=== PATIENT | male | born 1980 | race Caucasian/White ===

== ENCOUNTER 2019-09-14 06:32 | Inpatient (IN) | payer OTHER ==
[~2019-09-14] VITALS: Ht 185.4 cm; Wt 98.6 kg
[2019-09-14] MEDS ORDERED: LISINOPRIL10 MG PO (06:40)
[2019-09-14] MEDS ORDERED: OMEPRAZOLE20 MG PO (06:41)
--- NOTE | 2019-09-14 10:30 | NUR ---
PATIENT ARRIVED VIA STRETCHER WITH ED RN. PATIENT MOVED TO BED HIMSELF. PATIENT COMPLAINS OF ABD CRAMPING THAT FEELS BETTER IF HE LAYS ON HIS SIDE. URINALS PLACED IN THE BATHROOM. PATIENT IS AMBULATORY. BELONGINS AT THE BEDSIDE. PATIENT ASKED SOON HE ARRIVED TO ROOM 130 IF HE COULD GO OUTSIDE. EDUCATED PATIENT REGAURDING POLICIES AND THAT PATIENT CANNOT SMOKE WHILE ADMITTED TO THE HOSPITAL. WILL PROVIDE NICOTINE REPLACEMENT.
--- NOTE | 2019-09-14 11:15 | NUR ---
PATIENT NOW RESTING I NBED. PATIENT NOTED TO BE VERY SHORT AND "SNAPPY" AT STAFF WHEN ADMITTING PATIENT. PATIENT STATES "I NEED SOMETHING FOR MY ANXIETY". GAVE PRN ATIVAN. NICOTINE PATCH IN PLACE AND NICOTINE LOZENGE GIVEN. EDUCATED PATIENT ABOUT HOURLY BLOOD SUGAR CHECKS. CALL LIGHT IN PLACE. WILL CONTINUE TO CLOSELY MONITOR.
--- NOTE | 2019-09-14 12:10 | NUR ---
PATIENT RESTING IN BED AT THIS TIME. PATIENT DENIES ANY NEEDS. LABS DONE. INSULINE GTT TO 5MLS/HR PER PROTOCOL AND VERIFIED WITH SECOND RN. CALL LIGHT IN REACH. WILL CONTINUE TO CLOSELY MONITOR.
--- NOTE | 2019-09-14 14:00 | NUR ---
PATIENT RESTING IN BED. PATIENT REMAINS ON INSULIN GTT AT THIS TIME AND NS WITH POTTASIUM PER ORDERS. PATIENT DENIES ANY NEEDS. WILL CONTINUE TO ENCOURAGE REST PATIENT REPORTS "I AM ABSOLUTELY EXHAUSTED, I HAVE NOT SLEPT WELL FOR OVER A MONTH". WILL CONTINUE TO CLOSELY MONITOR.
--- NOTE | 2019-09-14 14:38 | NUR ---
Initial CM eval. Pt is resting in bed. States he is not feeling well, has been medicated with ativan and is pleasant. States he has not been feeling well for over a month, drinking large amounts of water and urinating. Has lost 16 pounds. States he lives in town with his girlfriend, Laura Parra, and their two children and his mother. Would like to return home when discharged.
--- NOTE | 2019-09-14 16:30 | NUR ---
PATIENTS GIRLFRIEND IN TO VISIT. PHONE NUMBER LEFT WITH STAFF. PATIENT STATES "I AM FEELING BETTER RIGHT NOW, GAVE PRN ZOFRAN AT 1600 FOR MILD NAUSEA". PATIENT STATES ABD PAIN IS TOLERABLE AT THIS TIME. PATIENT ON INSULIN GTT AND ADJUSTING GTT PER ORDERS. ASSESSMENT REMAINS UNCHANGED AT THIS TIME. WILL CONTINUE TO CLOSELY MONTIOR.
--- NOTE | 2019-09-14 18:04 | NUR ---
PATIENT RESTING IN BED AT THIS TIME WATCHING TV. PATIENT DENIES ANY NEEDS AT THIS TIME. PATIENT IS ABLE TO STAND ON HIS OWN AND GO TO THE BATHROOM NEEDED. PATIENT REMAINS ON AN INSULIN GTT AND CONTINUING TO TITRATE PER ORDERS. WILL CONTINUE TO CLOSELY MONITOR.
--- NOTE | 2019-09-14 19:01 | NUR ---
MD WALTER CALLED. PER MD WILL LEAVE PATIENT ON INSULIN GTT OVER NIGHT. MAY GIVE PATIENT SIPS OF WATER AND IF HE TOELRATES MAY ADVANCE DIET TO SUGAR FREE CLEAR LIQUID DIET. ONCE BLOOD SUGAR IS LESS THAN 200 START PATIENT ON D5NS W/20K AT 150MLS/HR. WILL HAVE INDUSTRIAL ENGINEER RN CALL WITH 0000 LAB VALUES. REPORT GIVEN TO INDUSTRIAL ENGINEER RNS. WILL CONTINUE TO CLOSELY MONITOR.
--- NOTE | 2019-09-14 19:35 | NUR ---
REPORT RC'D FROM DAY SHIFT NURSE. PT CURRENTLY RESTING IN BED WITH FAMILY AT BEDSIDE. INSULIN GTT VERIFIED AND INFUSING AT 10.2 UNITS/HR. FULL ASSESSMENT TO BE COMPLETE.D
--- NOTE | 2019-09-14 20:30 | NUR ---
PT AAOX4. SINUS TACH ON MONITOR. LUNGS CLEAR THROUGHOUT AND ON ROOM AIR. ABD TENDER, BOWEL TONES ACTIVE, DENIES NAUSEA. VOIDING QS. INTEGUMENTARY INTACT. DENIES PAIN. REQUESTING MEDICATION FOR ANXIETY AND RESTLESSNESS, 1 MG ATIVAN GIVEN. INSULIN GTT INFUSING AT 7.2 UNITS/HR. D5NS WITH 20K STARTED AT 150 ML/HR. REINFORCED SAFETY AND FALL PRECAUTION. UPDATED ON PLAN OF CARE. EDUCATION PROVIDED ON PAIN MANAGEMENT. ALL QUESTIONS ANSWERED. DENEIS OTHER NEEDS. CALL LIGHT WITHIN REACH.
--- NOTE | 2019-09-14 20:57 | NUR ---
CBG 196, INSULIN GTT TITRATED TO 9.8 UNITS/HR.
--- NOTE | 2019-09-14 21:54 | NUR ---
CBG 216, NO TITRATION NEEDED PER PROTOCOL.
--- NOTE | 2019-09-14 22:53 | NUR ---
CBG 223, INSULIN GTT TITRATED TO 13.6 UNITS/HR. PT ASSESSED FOR PAIN, STATES PAIN TOLERABLE AT THIS TIME. DENEIS OTHER NEEDS. CALL LIGHT WITHIN REACH.
--- NOTE | 2019-09-14 23:59 | NUR ---
CBG 206, INSULIN GTT TITRATED TO 11.2 UNITS/HR. ASSESSMENT UNCHANGED. PT REMAINS RESTFULL WITH NO ACUTE DISTRESS. DENEIS OTHER NEEDS. CALL LIGHT WITHIN REACH.
--- NOTE | 2019-09-15 00:36 | NUR ---
LABD OBTAINED. PT C/O 07/10 ABD PAIN, PRN MORPHINE GIVEN, EDUCATION PROVIDED ON USES AND POSSIBLE SIDE EFFECTS, ALL QUESTIONS ANSWERED. DENIES OTHER NEEDS. CALL LIGHT WITHIN REACH.
--- NOTE | 2019-09-15 02:45 | NUR ---
CBG 187, NO TITRATION OF INSULIN GTT PER PROTOCOL. DR. WALTER UPDATED ON PT'S LABS, NO NEW ORDERS. WILL CONTINUE TO MONITOR.
--- NOTE | 2019-09-15 04:58 | NUR ---
CBG 161, INSULIN GTT TITRATED TO 7 UNITS/HR. ASSESSMENT UNCHANGED. DENIES PAIN. DENIES OTHER NEEDS. CALL LIGHT WITHIN REACH.
--- NOTE | 2019-09-15 07:02 | NUR ---
NO TITRATION NEEDED.
--- NOTE | 2019-09-15 07:30 | NUR ---
PATIENT SHIFT REPORT RECIEVED FROM PANTS PRESSER AUTOMATIC RN. PATIENT RESTING IN BED AT THIS TIME. PATIENT REMAINS ON INSULIN GTT. NO OTHER NEEDS AT THIS TIME. WILL CONTINUE TO CLOSELY MONITOR.
--- NOTE | 2019-09-15 07:55 | NUR ---
MD WALTER CALLED. WILL TRANSITION PATIENT TO SUB-Q INSULIN. WILL STOP INSULIN GTT ONE HOUR AFTER LONG ACTING INSULIN IS ADMINISTERED AND SWITCH IV FLUIDS. WILL TRANSITION PATIENT TO A DIABETIC CLEAR LIQUID TRAY AND MONITOR HOW PATIENT TOLERATES IT. NEW ORDERS PLACED. WILL CONTINUE TO CLOSELY MONITOR.
--- NOTE | 2019-09-15 09:37 | NUR ---
PATIENT ASSESSMENT COMPLETED. MD WALTER IN TO SEE PATIENT. PATIENT IS AGREEABLE TO PLAN OF CARE AT THIS TIME AND STATES "I AM VERY SERIOUS ABOUT ALL OF THIS AND AM GOING TO DO WHAT I NEED TO GET BETTER, I KNOW THIS IS A LIFE CHANGING DIAGNOSIS". TRANSITIONED PAITENT TO SUB-S INSULIN PER MD ORDERS. PATIENT DENEID A SHOWER AT THIS TIME. BREAKFAST ORDERED. WILL CONTINUE TO CLOSELY MONITOR.
--- NOTE | 2019-09-15 11:00 | NUR ---
PATIENT RESTING IN BED. PATIENT TOELRATED CLEAR LIQUID TRAY WITH NO INCREASED ABD PAIN NOTED. PATIENT DENIES NAUSEA AT THIS TIME. WILL CONTINUE TO CLOSELY MONITOR. CLEAR LIQUID TRAY ORDERED FOR LUNCH.
--- NOTE | 2019-09-15 12:02 | NUR ---
PATIENT RESTING IN BED. PATIENT STATES "I HAVE NOT SLEPT WELL FOR A LONG TIME, SO I AM JUST CATCHING UP ON SLEEP WHILE I CAN, I HAVE A BABY AT HOME ALONG WITH BEING SICK, I HAVE BEEN EXHAUSTED". WILL ALLOW REST AT THIS TIME. PATIENTS BLOOD SUGAR CHECKED. CLEAR LIQUID TRAY ORDERED. NO OTHER NEEDS AT THIS TIME. WILL CONTINUE TO CLOSELY MONITOR.
--- NOTE | 2019-09-15 14:00 | NUR ---
PATIENT SITTING IN HIS ROOM WATCHING TV. OTHER RN GAVE PATIENT PRN ZOFRAN AND PAIN MEDICATION PRIOR TO HIS MEAL FOR INCREASED PAIN ANDNAUSEA. PATIENT IS VERY EAGAR TO LEARN ABOUT DIABETIES. PATIENT SIGNIFICANT OTHER WILL BE IN THIS EVENING AND WILL GO COMPLETE TEACHING WHEN SHE ARRIVES PER PATIENT REQUEST. PATIENT ASKS QUESTIONS AND IS INVOLVED IN PLAN OF CARE. NO OTHER NEEDS AT THIS TIME. ALL QUESTIONS ANSWERED. CALL LIGHT IN REACH. WILL CONTINUE TO CLOSELY MONITOR.
--- NOTE | 2019-09-15 15:45 | NUR ---
PT AND PT'S EDUCATED ON BASIC TYPE ONE DIABETIC SAFETY AND MANAGEMENT IN PREPERATION FOR PT DC TO HOME. PROVIDED PRINTED MATERIAL ON CARB COUNTING, SICK DAY MANAGEMENT, DAILY DIABETIC MANAGEMENT, AND DIAGNOSIS OF TYPE ONE DIABETES. ALL QUESTIONS ANSWERED. PROVIDED EDUCATION ON DRAWING UP AND ADMINISTERING INSULIN AND GLUCAGON.
--- NOTE | 2019-09-15 16:00 | NUR ---
THIS RN AND OTHER RN IN TO DO EDUCATION REGAURDING DIABETES. PATIENT AND HIS SIGNIFICANT OTHER ARE VERY RECEPTIVE TO EDUCATION AND INVOLVED AND ASKING QUESTIONS. WILL CONTINUE TO EDUCATE PATIENT AND FAMILY DURING HIS STAY AND ANSWER QUESTIONS.
--- NOTE | 2019-09-15 17:50 | NUR ---
PATIENT SIGNIFICANT OTHER IN THE ROOM. PATIENT AND SO PRACTICED USING GLUCOMETER AND DRAWING UP INSULIN AND ADMINISTRATION. WILL CONTINUE TO EDUCATED AND HAVE PATIENT AND SO BE INVOLVED IN HANDS ON ACTIVITIES. GAVE PRN MORPHINE FOR ABD PAIN PRIOR TO PATIENT EATING DINNER. NO OTHER NEEDS AT THIS TIME. WILL CONTINUE TO CLOSELY MONITOR.
--- NOTE | 2019-09-15 18:32 | NUR ---
UPDATED MD THAT PATIENT ATE APPROX 40G CARBS OF HIS MEAL. PER MD HOLD ADDITIONAL MEAL TIME INSULINE AND ONLY GIVE SLIDING SCALE INSULIN. WILL MONITOR HOW PATIENT TOLERATES DINNER. SO FAR PATIENT DENIES ANY NAUSEA OR PAIN WITH EATING. PATIENT UP CLEANING UP IN THE BATHROOM AND THEN WILL GO SHOWER AFTER HE IS FINISHED. ALL QUESTIONS ANSWERED. WILL CONTINUE TO CLOSELY MONITOR.
--- NOTE | 2019-09-15 18:54 | NUR ---
PATIENT UP TO THE SHOWER AT THIS TIME AND BEDDING CHANGED.
--- NOTE | 2019-09-15 19:30 | NUR ---
SHIFT REPORT RECEIVED. PATIENT RETURNED TO ROOM FROM SHOWERING. NEW GOWN PROVIDED BY ROMAINE SEALS. IV FLUSHED AND FLUIDS RESTARTED. PATIENT REPORTS MILD NAUSEA AND PAIN, WILL PROVIDED PRN MEDS WHEN AVAILABLE. PATIENT AGREEABLE TO THIS. NO OTHER NEEDS AT THIS TIME.
--- NOTE | 2019-09-15 20:41 | NUR ---
PATIENT PROVIDED WITH PRN ZOFRAN AND MORPHINE. EVENING MEDICATIONS PROVIDED. PATIENT ASSISTED TO CHECK HIS OWN BLOOD GLUCOSE AND ADMINISTER HIS INSULIN DOSE. PATIENT DID WELL AND APPEARS EAGER TO LEARN. VS STABLE. IV FLUIDS PER ORDER. PATIENT CONTINUES TO HAVE ABD PAIN, MOST PAINFUL IN MID UPPER ABD. VERY MILD NAUSEA, TOLERATING FLUIDS. PATIENT PREPARING FOR SLEEP, NO OTHER NEEDS AT THIS TIME.
--- NOTE | 2019-09-16 01:24 | NUR ---
SCHEDULED BLOOD GLUCOSE CHECKED AND COVERED WITH SSI. PATIENT REPORTS ONGOING PAIN IN ABD, PRN MORPHINE PROVIDED. WARM BLANKET OFFERED. VS STABLE. PATIENT DENIES NAUSEA. IV FLUIDS PER ORDER, SITE WNL. NO OTHER NEEDS AT THIS TIME.
--- NOTE | 2019-09-16 05:00 | NUR ---
PATIENT RESTING IN BED. REPORTS SLEEPING WELL DURING THE NIGHT. PAIN HAS IMPROVED. NO NAUSEA THIS MORNING. IV FLUIDS PER ORDER, SITE WNL. PATIENT REQUEST PRN PAIN MEDS FOR AND PAIN 5/10, WHICH WAS PROVIDED. LAB IN FOR MORNING DRAW. PATIENT DENIES ANY NEEDS.
--- NOTE | 2019-09-16 07:42 | NUR ---
SHIFT REPORT RECIEVED FROM FOOD TECHNICIAN RN. PATIENT RESTING IN BED. PATIENT DENIES ANY NEEDS AT THIS TIME. CALL LIGHT IN REACH. WILL CONTINUE TO CLOSELY MONITOR.
--- NOTE | 2019-09-16 08:59 | NUR ---
PATIENT RESTING IN BED. CHECKED PATIENTS BLOOD SUGAR. MEDICATIONS ADMINISTERED. BREAKFAST ORDERED. PATIENT REQUESTS TO SLEEP FOR JUST 45 MORE MIN. VITALS TAKEN. WILL LET PATIENT REST WHILE WAITING FOR BREAKFAST TO ARRIVE. PATIENT DENIES ANY OTHER NEEDS AT THIS TIME. WILL CONTINUE TO CLOSELY MONITOR.
--- NOTE | 2019-09-16 09:30 | NUR ---
PATIENT ANT-UP AND ADMINISTERED HIS OWN INSULIN THIS AM BEFORE BREAKFAST. MD WALTER IN TO SEE PATIENT. REVIEWED PLAN OF CARE WITH PATIENT. WILL CONTINUE MONITORING BLOOD SUGAR AND FOLLOW NEW ORDERES PER MD. WILL CONTINUE TO EDUCATE PATIENT AND CONTINUE ENCOURAGING PATIENT TO BE INVOLVED IN CARE. PATIENT REQUESTS TO NAP AT THIS TIME. WILL CONTINUE TO CLOSELY MONITOR.
--- NOTE | 2019-09-16 11:00 | NUR ---
PATIENT RESTING IN BED. CHECKED PATIENTS BLOOD SUGAR D/T PATIENT RECIEVING MEAL TIME AND CORRECTIONAL INSULIN THIS AM WHICH IS NEW FOR PATIENT. PATIENT BLOOD SUGAR IS 269. PATIENT DENIES ANY NEEDS AT THIS TIME. PATIENT RESTING OFF AND ON. PATIENT STATES PAIN IN ABD CONTINUES TO IMPROVE OVER TIME. PATIENT CONTINUES TO DENY NAUSEA. CALL LIGHT IN REACH. WILL CONTINUE TO CLOSELY MONITOR.
--- NOTE | 2019-09-16 12:30 | NUR ---
PATIENT REPORT GIVEN TO CAROL SEALS. PATIENT IS RESTING IN BED AT THIS TIME. WILL WALK WITH [facility] UPDATED CAROL SEALS THAT STAFF NEED TO CONTINUE DIABETES EDUCATION AND THE ADMINISTRATION OF INSULIN. PATIENT HAS BEEN INVOLVED IN TEACHING AND ASK QUESTIONS. PATIENT STATES THIS IS NICOL A LOT AND IT HELPS WHEN MY IS HERE. PATIENT DOES NOT KNOW WHEN SHE WILL BE HERE TO HELP WITH MORE EDUCATION. REMINDED PATIENT THAT IRIS WILL NOT ALWAYS BE THERE TO HELP HIM GIVE INJECTIONS AND PATIENT IS AGREEABLE TO LEARNING MORE.
--- NOTE | 2019-09-16 12:40 | NUR ---
PATIENT MEDICATIONS ADMINISTERED. UPDATED PATIENT ON PLAN OF CARE AND TRANSFER TO [facility] PATIENT IS AGREEABLE TO PLAN OF CARE. ALL BELONGINGS GATHERED AND THIS RN WALKED WITH PATIENT TO HIS NEW ROOM 115. VITALS TAKEN PRIOR TO TRANSFER. PATIENT WALKED TO NEW ROOM WITH NO ISSUES. CAROL RN IN ROOM TO INTRODUCE HIMSELF.
--- NOTE | 2019-09-16 12:46 | NUR ---
PT ARRIVED TO ROOM 115 FROM CCU AT THIS TIME. PT IS ALERT AND ORIENTED. ASSESSMENT COMPLETED. CALL LIGHT AND H2O IN REACH. PT DENIES NEEDS OR CONCERNS AT THIS TIME.
--- NOTE | 2019-09-16 14:26 | NUR ---
Medications reconciled
--- NOTE | 2019-09-16 15:01 | NUR ---
PT REPORTS PAIN OF 7/10 TO ABDOMEN. PT REQUESTED AND RECEIVED PRN PO TYLENOL. CALL LIGHT AND H2O IN REACH. NO FURTHER NEEDS OR CONCERNS VOICED.
--- NOTE | 2019-09-16 17:15 | NUR ---
PT SITTING UP AT SIDE OF BED EATING DINNER. PT HAS EATEN 80% SO FAR. SCHEDULED INSULIN ADMINISTERED. PT STATES PAIN IS TOLERABLE. NO NEEDS OR CONCERNS VOICED. FAMILY VISITING AT BEDSIDE.
--- NOTE | 2019-09-16 19:30 | NUR ---
REPORT RECEIVED FROM DAY SHIFT RN. PT LYING IN BED, ALERT AND ORIENTED. NO QUESTIONS OR CONCERNS AT THIS TIME. CALL LIGHT IN REACH.
--- NOTE | 2019-09-16 21:20 | NUR ---
ASSESSMENT COMPLETE. EVENING MEDS GIVEN WITHOUT ISSUE. PRN NICOTINE LOZENGE GIVEN PER PT REQUEST. PT DENIES PAIN OR NAUSEA. SUGAR FREE JELLO GIVEN. NO FURTHER NEEDS AT THIS TIME. CALL LIGHT IN REACH.
--- NOTE | 2019-09-17 00:13 | NUR ---
PT RESTING IN BED AND WATCHING TELEVISION, NO DISTRESS NOTED. PT DENIES NEEDS, CALL LIGHT IN REACH.
--- NOTE | 2019-09-17 02:10 | NUR ---
PT AWAKE, LYING IN BED. BLOOD SUGAR 242, INSULIN GIVEN PER SLIDING SCALE. PROTEIN PACK GIVEN FOR A SNACK. PRN TYLENOL GIVEN FOR GENERALIZED PAIN. PT DENIES OTHER NEEDS AT THIS TIME. CALL LIGHT IN REACH.
--- NOTE | 2019-09-17 03:50 | NUR ---
PT IN BED RESTING WITH EYES CLOSED. RR EVEN AND UNLABORED. CALL LIGHT IN REACH.
--- NOTE | 2019-09-17 05:22 | NUR ---
PT ALERT AND ORIENTED. USES CALL LIGHT APPROPRIATELY. INDEPENDENT IN ROOM. BLOOD SUGAR CHECK AND INSULIN PER SLIDING SCALE. TYLENOL FOR ABD PAIN. 75 GR CARB DIET, YESENIA WELL.
--- NOTE | 2019-09-17 06:27 | NUR ---
PT LYING IN BED RESTING WITH EYES CLOSED. VS AND I&O COMPLETE. ASSESSMENT COMPLETE. PT DENIES PAIN OR NAUSEA. NO OTHER NEEDS AT THIS TIME. CALL LIGHT IN REACH.
--- NOTE | 2019-09-17 07:10 | NUR ---
PT RESTING SUPINE IN BED, EYES CLOSED AND RESPIRATIONS EVEN AND UNLABORED. CALL LIGHT AND H2O IN REACH. PT APPEARS TO BE SLEEPING COMFORTABLY. RR16. REPORT RECEIVED FROM ARNEL MENDOZA.
--- NOTE | 2019-09-17 07:30 | NUR ---
PATIENT RESTING IN BED. PATIENT REFUSED WASH CLOTH FOR FACE AND HANDS. NO NEEDS AT THIS TIME. CALL BUTTON IN REACH. BREAKFAST BROUGHT INTO ROOM.
--- NOTE | 2019-09-17 08:27 | NUR ---
PT SITTING UP IN BED WATCHING TV. PT STATES "I'M FEELING KIND OF NAUSEATED AFTER BREAKFAST, CAN I GET SOMETHING FOR THAT?" PT REQUESTED AND RECEIVED PRN IV ZOFRAN. SCHEDULED AM MEDS ALSO ADMINISTERED. AM ASSESSMENT COMPLETED. CALL LIGHT AND H2O IN REACH. NO FURTHER NEEDS OR CONCERNS VOICED.
--- NOTE | 2019-09-17 10:00 | NUR ---
In and spoke with Josh. He plans on going home today. States he had intensive diabetic education over the last few days. He has been able to give himself shots and his girlfrient has also completed. Discussed his pancreatitis and asked if he would like information on A&D counseling through [facility], which is free. He declines at this time. Pt. feels he can safely dc to home with family.
--- NOTE | 2019-09-17 10:45 | NUR ---
IN TO SEE PATIENT. PT RESTING IN SEMIFOWLERS POSITION IN BED ALERT AND ORIENTED. PT STATES "WILL YOU LET THE DOCTOR I REALLY NEED TO BE GETTING HOME NOW, I'VE GOT KIDS AT HOME THAT NEED THEIR DAD". DR MCCOLLUM NOTIFIED OF PT'S REQEUST FOR DISCHARGE. PER MD REQEUST SEVERAL ATTEMPTS MADE TO CONTACT DIABETIC DIETARY EDUCATOR BUT NO ANSWER AT THIS TIME. ATTEMPT ALSO MADE TO CONTACT CASE MANAGEMENT TO ASSIST IN COORDINATING THIS EDUCATION ON AN OUTPATIENT BASIS PER MD REQUEST BUT NO ANSWER AT THIS TIME. PORTFOLIO ANALYST NOTIFIED OF NEED FOR THIS TO BE COORDINATED.
--- NOTE | 2019-09-17 11:05 | NUR ---
PT PROVIDED WITH DIET FERNANDEZ AT THIS TIME PER REQUEST. CALL LIGHT AND H2O IN REACH. MD IN TO SEE PATIENT, NO FURTHER NEEDS VOICED AND PT APPEARS TO BE IN NO ACUTE DISTRESS.
[2019-09-17] MEDS ORDERED: NICOTINE PATCH1 EAC1 TD (11:12)
[2019-09-17] MEDS ORDERED: NICORETTE4 M2 BUCCAL (11:12)
[2019-09-17] MEDS ORDERED: BASAGLAR K100 UNIT/1 SUB-Q (11:14)
[2019-09-17] MEDS ORDERED: NOVOLOG FL100 UNIT/1 SUB-Q (11:16)
[2019-09-17] MEDS ORDERED: FREESTYLE LITE1 EAC1 XX (11:17)
[2019-09-17] MEDS ORDERED: FREESTYLE FREE1 EAC1 MISC (11:18)
[2019-09-17] MEDS ORDERED: DROPLET NE EAC XX (11:28)
--- NOTE | 2019-09-17 11:30 | NUR ---
ODILIA CEE IN PT ROOM TO DISCUSS WITH PT APPROPRIATE FOODS, AND THAT DIABETIC CONSULT PROVIDER WOULD MAKE CONTACT WITH PT WITHIN THREE DAYS.
--- NOTE | 2019-09-17 11:43 | NUR ---
THERE IS A CATALOGUE AND SPECIAL PRODUCTS MANAGER CONSULT, BUT CATALOGUE AND SPECIAL PRODUCTS MANAGER IS NOT HERE UNTIL TUESDAY, 09/19. I STOPPED BY PATIENT'S ROOM HE IS PREPARING TO BE DISCHARGED. HE IS NEWLY DIAGNOSED WITH TYPE 1 DM. I PROVIDED HIM A BOOK ON DIABETES FROM THE [employer]. WENT OVER WHAT IS HYPOGLYCEMIA, SIGNS & SYMPTOMS OF HYPOGLYCEMIA, AND HOW TO TREAT HPYOGLYCEMIA. ALSO WENT OVER FACTORS THAT CAN RAISE BLOOD SUGAR BESIDES FOOD. REVIEWED THE DIABETES PLATE AND BRIEFLY DISCUSSED CARBOHYDRATES. PATIENT ALREADY PLANS TO READ LABELS. GAVE HIM MY CONTACT INFO AND MIGUEL GOEL, CATALOGUE AND SPECIAL PRODUCTS MANAGER'S CONTACT INFO. WE WILL CONTACT HIM TO SCHEDULE AN OUTPATIENT APPOINTMENT.
== END 2019-09-17 12:25 | disposition home or self-care (01) | DRG 637 ==
LOC: ED 06:32 → CCU 09:32 → MS 09-16 12:40
PROVIDERS: ADMIT Internal Medicine
DX: E10.10 Type 1 diabetes mellitus with ketoacidosis without coma (principal); K85.20 Alcohol induced acute pancreatitis without necrosis or infection; I10 Essential (primary) hypertension; F17.210 Nicotine dependence, cigarettes, uncomplicated; K21.9 Gastro-esophageal reflux disease without esophagitis; E78.5 Hyperlipidemia, unspecified; F10.10 Alcohol abuse, uncomplicated; Z79.899 Other long term (current) drug therapy
CPT/HCPCS: 36415; 74177; 80048; 80053; 80061; 81001; 82010; 82800; 82977; 83036; 83519; 83690; 83735; 84681; 85025; 86341; 96361; 96374; 96375; 96376; 99285-25; 99406; G0480; J1650; J1815; J2060; J2270; J2405; J3475; J3480; J7030; J7121; Q9967

== ENCOUNTER 2020-10-20 01:14 | Emergency (ER) | payer OTHER ==
[~2020-10-20] VITALS: Ht 185.4 cm; Wt 98.6 kg
[~2020-10-20 01:14] MED LIST: BASAGLAR K100 UNIT/1 SUB-Q; DROPLET NE EAC XX; FREESTYLE FREE1 EAC1 MISC; FREESTYLE LITE1 EAC1 XX; LISINOPRIL10 MG PO; NICORETTE4 M2 BUCCAL; NICOTINE PATCH1 EAC1 TD; NOVOLOG FL100 UNIT/1 SUB-Q; OMEPRAZOLE20 MG PO
--- OUTSIDE RECORDS SUMMARY | 2020-10-20 01:16 | XMS ---
PreManage Notification: NIGEL CESPEDES Security Liquor Gallery Operator Events No recent Security Events currently on file CRITERIA MET - [facility] CARE PROVIDERS There are no care providers on record at this time. [facility] has no Care Guidelines for this patient. Ming VISIT COUNT (12 MO.) 1 DARIEL Wilkinson TOTAL 1 NOTE: Visits indicate total known visits. ED/C VISIT TRACKING (12 MO.) 10/20/2020 01:15 DARIEL Argueta OR TYPE: Emergency COMPLAINT: - POSSIBLE DISLOCATED SHOULDER INPATIENT VISIT TRACKING (12 MO.) No inpatient visits to display in this time frame [email or web address]
== END 2020-10-20 03:04 | disposition home or self-care (01) ==
LOC: ED 01:14
DX: S43.015A Anterior dislocation of left humerus, initial encounter (principal); X58.XXXA Exposure to other specified factors, initial encounter; E11.9 Type 2 diabetes mellitus without complications; F17.200 Nicotine dependence, unspecified, uncomplicated; Z79.899 Other long term (current) drug therapy; Z79.4 Long term (current) use of insulin
CPT/HCPCS: 23650; 73020; 73030; 99152; 99283-25; J2270; J2704; J7121

== ENCOUNTER 2020-10-25 21:29 | Emergency (ER) | payer OTHER ==
[~2020-10-25] VITALS: Ht 185.4 cm; Wt 94.9 kg
--- OUTSIDE RECORDS SUMMARY | 2020-10-25 21:32 | XMS ---
PreManage Notification: NIGEL CESPEDES Security Igniter Assembler Events No recent Security Events currently on file CRITERIA MET - [facility] - 2 Visits in 30 Days CARE PROVIDERS MILTON ROJAS Physician Slitter And Cutter Operator 10/20/2020-Current SHAHLA PHONE: [phone] [facility] has no Care Guidelines for this patient. Ming VISIT COUNT (12 MO.) 2 [facility] TOTAL 2 NOTE: Visits indicate total known visits. ED/UCC VISIT TRACKING (12 MO.) 10/25/2020 21:30 DARIEL Argueta OR TYPE: Emergency COMPLAINT: - POSSIBLE DISLOCATED SHOULDER 10/20/2020 01:15 DARIEL Argueta OR TYPE: Emergency COMPLAINT: - POSSIBLE DISLOCATED SHOULDER DIAGNOSES: - Type 2 diabetes mellitus without complications - Nicotine dependence, unspecified, uncomplicated - Pain in left shoulder - Other sack department supervisor (current) drug therapy - automatic washer mechanic (current) use of insulin - Anterior dislocation of left humerus, initial encounter - Exposure to other specified factors, initial encounter INPATIENT VISIT TRACKING (12 MO.) No inpatient visits to display in this time frame [email or web address]
== END 2020-10-25 23:07 | disposition home or self-care (01) ==
LOC: ED 21:29
DX: M24.412 Recurrent dislocation, left shoulder (principal); E11.9 Type 2 diabetes mellitus without complications; F17.200 Nicotine dependence, unspecified, uncomplicated; Z79.4 Long term (current) use of insulin; Z79.899 Other long term (current) drug therapy
CPT/HCPCS: 23650; 73030; 99283-25; J2704; J7030

== ENCOUNTER 2020-12-14 18:26 | Emergency (ER) | payer OTHER ==
[~2020-12-14] VITALS: Ht 185.4 cm; Wt 99.9 kg
--- OUTSIDE RECORDS SUMMARY | 2020-12-14 18:30 | XMS ---
PreManage Notification: NIGEL CESPEDES Security Home Connect Lpn Events No recent Security Events currently on file CRITERIA MET - [facility] CARE PROVIDERS MILTON ROJAS Physician Manager Fine Dining 10/20/2020-Current SHAHLA PHONE: [phone] [facility] has no Care Guidelines for this patient. EHerb VISIT COUNT (12 MO.) [address] [facility] TOTAL 3 NOTE: Visits indicate total known visits. 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 - [facility] (current) use of insulin 10/20/2020 01:15 DARIEL Argueta OR TYPE: Emergency COMPLAINT: - POSSIBLE DISLOCATED SHOULDER DIAGNOSES: - Type 2 diabetes mellitus without complications - Nicotine dependence, unspecified, uncomplicated - Pain in left shoulder - Other intermediate (current) drug therapy - keno terminal operator (current) use of insulin - Anterior dislocation of left humerus, initial encounter - Exposure to other specified factors, initial encounter INPATIENT VISIT TRACKING (12 MO.) No inpatient visits to display in this time frame [email or web address]
== END 2020-12-14 20:34 | disposition home or self-care (01) ==
LOC: ED 18:26
DX: M24.412 Recurrent dislocation, left shoulder (principal); E11.9 Type 2 diabetes mellitus without complications; I10 Essential (primary) hypertension; F17.200 Nicotine dependence, unspecified, uncomplicated; Z79.4 Long term (current) use of insulin; Z79.899 Other long term (current) drug therapy
CPT/HCPCS: 23650; 73030; 99152; 99283-25

== ENCOUNTER 2021-03-01 12:00 | Emergency (ER) | payer OTHER ==
[~2021-03-01] VITALS: Ht 185.4 cm; Wt 102.1 kg
== END 2021-03-01 12:52 | disposition home or self-care (01) ==
LOC: ED 12:00
DX: R43.8 Other disturbances of smell and taste (principal); R05 Cough; Z20.822 Contact with and (suspected) exposure to COVID-19; E11.9 Type 2 diabetes mellitus without complications; I10 Essential (primary) hypertension; F17.200 Nicotine dependence, unspecified, uncomplicated; Z79.4 Long term (current) use of insulin
CPT/HCPCS: 99283; C9803; U0003

== ENCOUNTER 2021-04-06 13:17 | Inpatient (IN) | payer OTHER ==
[~2021-04-06] VITALS: Ht 188 cm; Wt 88.6 kg
--- OUTSIDE RECORDS SUMMARY | 2021-04-06 15:22 | XMS ---
PreManage Notification: NIGEL CESPEDES Security Composing Room Machinist Events No recent Security Events currently on file CRITERIA MET - [facility] CARE PROVIDERS MILTON ROJAS Physician Barge Pilot 10/20/2020-Current SHAHLA PHONE: [phone] [facility] has no Care Guidelines for this patient. EHerb VISIT COUNT (12 MO.) 5 DARIEL Wilkinson TOTAL 5 NOTE: Visits indicate total known visits. ED/C VISIT TRACKING (12 MO.) 04/06/2021 13:18 DARIEL Argueta OR TYPE: Emergency COMPLAINT: - DIABETES ISSUES 03/01/2021 12:03 DARIEL Argueta OR TYPE: Emergency COMPLAINT: - FLU SYMPTOMS, NO TASTE DIAGNOSES: - Other disturbances of smell and taste - Nicotine dependence, unspecified, uncomplicated - Other disturbances of smell and taste - senior care (current) use of insulin - Essential (primary) hypertension - Type 2 diabetes mellitus without complications - Cough 12/14/2020 18:27 DARIEL Argueta OR TYPE: Emergency COMPLAINT: - POSSIBLE DISLOCATED SHOULDER DIAGNOSES: - Nicotine dependence, unspecified, uncomplicated - Essential (primary) hypertension - senior care (current) use of insulin - Recurrent dislocation, left shoulder - Other manager long term care (current) drug therapy - Type 2 diabetes mellitus without complications 10/25/2020 21:30 DARIEL Argueta OR TYPE: Emergency COMPLAINT: - POSSIBLE DISLOCATED SHOULDER DIAGNOSES: - Nicotine dependence, unspecified, uncomplicated - Recurrent dislocation, left shoulder - Type 2 diabetes mellitus without complications - Other half-way (current) drug therapy - tank terminal gauger (current) use of insulin 10/20/2020 01:15 DARIEL Argueta OR TYPE: Emergency COMPLAINT: - POSSIBLE DISLOCATED SHOULDER DIAGNOSES: - Type 2 diabetes mellitus without complications - Nicotine dependence, unspecified, uncomplicated - Pain in left shoulder - Other manager long term care (current) drug therapy - tank terminal gauger (current) use of insulin - Anterior dislocation of left humerus, initial encounter - Exposure to other specified factors, initial encounter INPATIENT VISIT TRACKING (12 MO.) No inpatient visits to display in this time frame [email or web address]
--- NOTE | 2021-04-06 17:10 | NUR ---
PT ARRIVES TO FLOOR VIA STRETCHER. PT CAN AMBULATE INDEPENDENTLY AND GOES IMMEDIATELY TO TOILET TO VOID. PT IS ALERT AND ORIENTED, BELONGINGS IN BAG ON SOFA. PT APPEARS AGITATED AND IS IRRITATED WITH NURSING INTERVENTIONS ALTHOUGH IS COMPLIANT. PT ORIENTED TO ROOM; VITALS TAKEN BP 177/104 MAP 120. PT REPORTS HAVING HTN AND "IS SUPPOSED TO TAKE MEDS" BUT DOES NOT. PT REPORTS PAIN 10/10 IN ABDOMEN. WILL PROVIDE PRN MEDS WHEN AVAILABLE FROM PHARMACY.
--- NOTE | 2021-04-06 17:30 | NUR ---
BACK IN ROOM WITH PAIN MEDS AND SCHEDULED MEDS. 10MG PO OXYCODONE ADMINISTERED AT THIS TIME. IV BOLUS INFUSING. PT RESPONDS IN AGITATED MANNER; DISCUSSED WITH PT CIWA TESTING AND PT UNDERSTANDS WHAT THIS IS AND REPORTS KNOWING THE S/S OF ALCOHOL WITHDRAWAL. LIGHTS TURNED DOWN FOR NOW, WILL RETURN AND SEE IF PAIN MEDS ARE WORKING.
--- NOTE | 2021-04-06 18:37 | NUR ---
PATIENT APPEARS TO BE SLEEPING. PATIENTS ADMIT VITALS ARE DONE AND CHARTED. CALL LIGHT IN REACH. NOTHING NEEDED AT THIS TIME.
--- NOTE | 2021-04-06 19:30 | NUR ---
RECEIVED REPORT FROM ARNEL BARNES.
--- NOTE | 2021-04-06 20:15 | NUR ---
CO-SIGNED INSULIN, PT JOKINGLY ASKED IF RN COULD TAKE HIM OUT TO SMOKE. ASKED PT IF A NICOTINE PATCH WOULD BENEFIT HIM, HE SAID YES, FLAVORED "MENTHAL". ORDERED. PT PRIMARY RN AWARE
--- NOTE | 2021-04-06 20:36 | NUR ---
IN TO GIVE NICOTINE PATCH. CIWA OF 5. pt HAS MILD HEADACHE THAT IS "ALMOST GONE" AND IS RESTLESS IN BED. DISCUSSED IMPORTANCE OF HEALTHY DECISIONS. pt WORKS AT [employer] AND HAS DIFFICULTY GETTING TIME OFF TO GO TO THE DOCTOR. NO FURTHER REQUESTS AT THIS TIME. CALL LIGHT WITHIN REACH.
--- NOTE | 2021-04-06 22:52 | NUR ---
ROUNDED ON pt. VITALS DONE. pt REPORTED 8 PAIN, STATED "THE FLUIDS ARE REALLY HELPING ME" REQUESTED PRN PAIN MEDICATION BOTH IV AND PO. GIVEN (SEE MAR). pt AGAIN REQUESTED TO EAT AND DRINK, EDUCATION DONE ON CURRENT ILLNESS. NO FURTHER REQUESTS AT THIS TIME. CALL LIGHT WITHIN REACH.
--- NOTE | 2021-04-07 01:30 | NUR ---
ROUNDED ON pt. SITTING UP IN BED. REPORTS PAIN, PRN GIVEN (SEE MAR). BLOOD SUGAR WITHIN RANGE. NO FURTHER REQUESTS AT THIS TIME. CALL LIGHT WITHIN REACH.
--- NOTE | 2021-04-07 03:05 | NUR ---
ROUNDED ON pt. pt STARTLED WHEN DOOR OPENED. CIWA 8. PRN GIVEN (SEE MAR). pt REFUSED OXY AT THIS TIME. NO CHANGES IN ASSESSMENT. VITALS DONE. CALL LIGHT WITHIN REACH.
--- NOTE | 2021-04-07 03:40 | NUR ---
ROUNDED ON pt. REQUESTED PRN PAIN MEDS FOR 7/10 PAIN. REPORTED THAT THE DIAZEPAM HELPED "I FEEL MUCH MORE RELAXED" TREMORS DECREASED, LESS RESTLESS. NO FURTHER REQUESTS AT THIS TIME. CALL LIGHT WITHIN REACH.
--- NOTE | 2021-04-07 05:00 | NUR ---
ROUNDED ON pt. RESTING IN BED WITH EYES CLOSED, RESPIRATIONS REGULAR AND UNLABORED. CALL LIGHT WITHIN REACH. NO TREMORS NOTED.
--- NOTE | 2021-04-07 06:31 | NUR ---
IN TO DO VITALS. pt REPORTED URINE OUTPUT, DARK IN COLOR. REPORTED 7/10 PAIN, PRN GIVEN pt REQUESTED MORPHINE. NO CHANGES IN ASSESSMENT. CALL LIGHT WITHIN REACH.
--- NOTE | 2021-04-07 07:21 | NUR ---
PT AWAKE AND PARTICIPATORY AT TIME OF BEDSIDE REPORT. DENIES DISCOMFORTS OR NEEDS AT THIS TIME.
--- NOTE | 2021-04-07 07:42 | NUR ---
[place] WALTER [place] [facility] [place]/2 [place] D50
--- NOTE | 2021-04-07 08:22 | NUR ---
PT AWAKE IN BED. PT PLANS TO SHOWER LATER THIS AM, BATHRROM SET UP AND READY TO GO. PT IND IN ROOM. WHITE BOARD UPDATED. CALL LIGHT WITHIN REACH. NO FURTHER NEEDS AT THIS TIME.
--- NOTE | 2021-04-07 09:53 | NUR ---
DR WALTER NOTIFIED OF SECOND CBG CHECK LOW AGAIN. ORDERS TAKEN D50 ADMINISTERED
[2021-04-07] MEDS ORDERED: BASAGLAR K100 UNIT/1 SUB-Q (09:57)
--- NOTE | 2021-04-07 10:10 | NUR ---
Visited with pt briefly and he received a lengthy phone call. Will return later or in the am to complete assessment. Pt complains of pancreatic pain.
--- NOTE | 2021-04-07 10:24 | NUR ---
PATIENT GETTING READY FOR SHOWER VITALS CHARTED AND I&O'S
--- NOTE | 2021-04-07 10:30 | NUR ---
CBG RE-ASSESSED @ 88 PT HAS REMAINED ASYMPTOMATIC THROUGHOUT LOW SUGARS THIS SHIFT. ADVANCED TO CLEAR LILQUIDS HE DRINKS JUICE AND WATER WITHOUT C/O NAUSEA OR DISCOMFORT.
[2021-04-07] MEDS ORDERED: NEURONTIN300 MG PO (10:33)
--- NOTE | 2021-04-07 10:33 | NUR ---
MED REC COMPLETE
--- NOTE | 2021-04-07 11:19 | NUR ---
PT UP TO THE SHOWER AGREES HE FEELS REFRESHED. DENIES PAIN OR DISCOMFORTS AT THIS TIME. NO FURTHER CLEAR LIQUIDS TAKEN THIS SHIFT OTHER THAN SIPS OF H20. PT RESTING EYES CLOSED STATES HE DIDN'T SLEEP WELL LAST NIGHT
--- NOTE | 2021-04-07 12:18 | NUR ---
PT HAS A CLEAR LIQUID DIET FOR NOON MEAL HE DENIES NAUSEA OR INCREASED PAIN. AGREES HE IS TOLERATING PO INTAKE WELL.
--- NOTE | 2021-04-07 14:09 | NUR ---
CBG IN NORMAL RANGE NOW. PT RESTING IN ROOM REQUESTS MORPHINE FOR INCREASED ABDOMINAL PAIN STATES HE THINKS IT WAS THE BROTH. JIMENEZ ARCHERS PROVIDED FOR COMFORT. DENIES FURTHER NEEDS OF
--- NOTE | 2021-04-07 15:00 | NUR ---
CONFIRMED WITH DR WALTER THAT D5LR AND NS10%DEX ARE TO BE RUNNING CONCURRENTLY AT 100 EACH.
--- NOTE | 2021-04-07 15:09 | NUR ---
PT AWAKE IN BE WATCHING TV. CALL LIGHT WITHIN REACH. FRESH ICE WATER GIVEN. NO FURTHER NEEDS AT THIS TIME.
--- NOTE | 2021-04-07 17:39 | NUR ---
PT RESTING EYES CLOSED APPEARS TO BE NAPPING, LEFT UNDISTURBED
--- NOTE | 2021-04-07 18:29 | NUR ---
PATIENT SITTING UP IN BED WATCHING TV. VITALS AND I&O'S CHARTED. CALL LIGHT IN REACH. NO FURTHER NEEDS AT THIS TIME.
--- NOTE | 2021-04-07 19:02 | NUR ---
RECEIVED REPORT FROM ARNEL MEEKS. pt RESTING IN BED WITH EYES CLOSED, RESPIRATIONS REGULAR AND UNLABORED. CALL LIGHT WITHIN REACH.
--- NOTE | 2021-04-07 20:27 | NUR ---
IN TO DO ASSESSMENT. pt REPORTED 5/10 PAIN, EDUCATED ON PAIN MANAGEMENT AND WHEN NEXT DOSE WAS AVAILABLE. pt REPORTED ANXIETY REQUESTED ANXIETY MEDICATION. EDUCATION DONE ON CIWA PROTOCOL. CIWA SCORE 7 AT THIS TIME. ENCOURAGED pt TO WALK IN [facility]. THIS RN WALKED WITH pt TO [facility]. pt REPORTED IMPROVEMENT IN ANXIETY. ASSESSMENT DONE. pt RESTING IN BED. CALL LIGHT WITHIN REACH.
--- NOTE | 2021-04-07 22:19 | NUR ---
IN TO GIVE PAIN MEDICATION FOR 5/10 PAIN. PROVIDED JELLO. pt REPORTED VOID. NO FURTHER REQUESTS AT THIS TIME. CALL LIGHT WITHIN REACH.
--- NOTE | 2021-04-08 00:16 | NUR ---
ROUNDED ON pt. RESTING ON RIGHT SIDE, RESPIRATIONS REGULAR AND UNLABORED. IVF INFUSING. CALL LIGHT WITHIN REACH.
--- NOTE | 2021-04-08 01:02 | NUR ---
CALL LIGHT ON. IV BEEPING, NEW BAG HUNG. pt REPORTS 4/10 PAIN, OKAY AT THIS TIME. BLOOD SUGAR WITHIN RANGE. NO REQUESTS AT THIS TIME. CALL LIGHT WITHIN REACH.
--- NOTE | 2021-04-08 03:26 | NUR ---
CALL LIGHT ON. pt REQUESTED PRN PAIN MEDICATION FOR 4/10 PAIN, GIVEN (SEE MAR). NO CHANGES IN ASSESSMENT. CIWA 1. pt REPORTS SLEEPING. NO FURTHER REQUESTS AT THIS TIME. IV PATENT. CALL LIGHT WITHIN REACH.
--- NOTE | 2021-04-08 05:42 | NUR ---
IN TO DO VITALS. pt WOKE TO VOICE. REPORTED 3/10 PAIN. VITALS DONE. NO REQUESTS AT THIS TIME. CALL LIGHT WITHIN REACH.
--- NOTE | 2021-04-08 07:45 | NUR ---
CBG checked at 110. Pt requests to sleep unbothered at this time. IVF infusing WNL, no needs identified. Call light in reach.
--- NOTE | 2021-04-08 09:00 | NUR ---
Call light answered, pt requests PRN pain medication and water refill, provided and medicated. Scheduled medications administered, assessment complete. Pt reports 2/10 pain, no other symptoms present. IVF infusing per order. Clear liquids offered to pt. Discussed plan of care, pt is agreeable. Call light in reach.
--- NOTE | 2021-04-08 10:45 | NUR ---
UPDATED CLINICALS SENT TO PCP PER REQUEST OF [facility].
--- NOTE | 2021-04-08 11:15 | NUR ---
advanced diet order, assisted pt with ordering low fat lunch tray. Saline locked at this time, no further needs. Call light in reach.
--- NOTE | 2021-04-08 13:00 | NUR ---
IV DC'd by ARNEL Guerrero, cath tip intact, site WNL.
[2021-04-08] MEDS ORDERED: NICOTINE1 EAC1 TD (13:10)
[2021-04-08] MEDS ORDERED: ONDANSETRON HCL4 MG PO (13:10)
[2021-04-08] MEDS ORDERED: OXYCODONE HCL10 MG PO (13:10)
--- NOTE | 2021-04-08 13:30 | NUR ---
Discharge teaching done, pt verbalizes understanding and has no questions or concerns at this time. Rx and directions provided, states understanding.
--- NOTE | 2021-04-08 14:00 | NUR ---
Returned 04/08/21 at 1400 and completed assessment. Pt lives with girl friend in and apartment. Does not use any DME. States he is a Type 1 diabetic and uses diabetic supplies. Discussed if he would like to speak with Peer to Peer support from [employer] for his alcohol use. Pt states he doesn't feel he has problem and is going to see his PCP for "the pill" that stops you from drinking. I asked if he meant anti buse and he states yes. He does does not want Peer to Peer and does say he would be will to take a class. Informed I will give him a brochure to [employer] and he call follow up on his own when he is ready. Pt denies other needs and plans on discharge this afternoon to home with girlfriend.
--- NOTE | 2021-04-08 14:06 | NUR ---
DISCHARGE VITALS AND I&OS CHARTED.
--- NOTE | 2021-04-08 14:15 | NUR ---
Pt discharged with belongings in hand. VSS, A+O. Reports no pain or needs. Discharge information taught and sent with pt who verbalizes understanding.
== END 2021-04-08 14:15 | disposition home or self-care (01) | DRG 440 ==
LOC: ED 13:17 → MS 15:47
PROVIDERS: ADMIT Internal Medicine; ATTEND Internal Medicine
DX: K85.20 Alcohol induced acute pancreatitis without necrosis or infection (principal); Z20.822 Contact with and (suspected) exposure to COVID-19; I10 Essential (primary) hypertension; E10.9 Type 1 diabetes mellitus without complications; K70.10 Alcoholic hepatitis without ascites; K21.9 Gastro-esophageal reflux disease without esophagitis; F17.200 Nicotine dependence, unspecified, uncomplicated; Z79.899 Other long term (current) drug therapy; Z79.4 Long term (current) use of insulin
CPT/HCPCS: 36415; 80053; 83036; 83690; 83735; 85025; 85610; 96374; 96375; 96376; 99284-25; C9113; C9803; J1650; J2270; J2405; J3360; J3480; J7030; J7060; J7121; J7131; U0003

== ENCOUNTER 2021-04-18 01:17 | Emergency (ER) | payer OTHER ==
[~2021-04-18] VITALS: Ht 188 cm; Wt 90.7 kg
[~2021-04-18 01:17] MED LIST changes: +NEURONTIN300 MG PO; +NICOTINE1 EAC1 TD; +ONDANSETRON HCL4 MG PO; +OXYCODONE HCL10 MG PO
--- OUTSIDE RECORDS SUMMARY | 2021-04-18 01:20 | XMS ---
PreManage Notification: NIGEL CESPEDES Security Logistics Analyst Events No recent Security Events currently on file CRITERIA MET - [facility] - [facility] - 2 Visits in 30 Days - 6 ED Visits in 6 Months CARE PROVIDERS FIORDALIZA MONTOYA Physician Environmental Solutions Engineer 04/07/2021-Current PHONE: [phone] MILTON ROJAS Physician Environmental Solutions Engineer 10/20/2020-Current [place] PHONE: [phone] [facility] has no Care Guidelines for this patient. E.DLinda VISIT COUNT (12 MO.) [address] [place] [address] TOTAL 6 NOTE: Visits indicate total known visits. ED/UCC VISIT TRACKING (12 MO.) 04/18/2021 01:18 [facility] [place] TYPE: Emergency COMPLAINT: - POSSIBLE DISLOCATED SHOULDER 04/06/2021 13:18 [facility] [place] TYPE: Emergency COMPLAINT: - DIABETES ISSUES 03/01/2021 12:03 [facility] [place] TYPE: Emergency COMPLAINT: - FLU SYMPTOMS, NO TASTE DIAGNOSES: - Other disturbances of smell and taste - Nicotine dependence, unspecified, uncomplicated - Other disturbances of smell and taste - group home (current) use of insulin - Essential (primary) hypertension - Type 2 diabetes mellitus without complications - Cough 12/14/2020 18:27 [facility] [place] TYPE: Emergency COMPLAINT: - POSSIBLE DISLOCATED SHOULDER DIAGNOSES: - Nicotine dependence, unspecified, uncomplicated - Essential (primary) hypertension - 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 attack controller (current) use of insulin - Recurrent dislocation, left shoulder - Other custodial (current) drug therapy - Type 2 diabetes mellitus without complications 10/25/2020 21:30 [facility] [place] TYPE: Emergency COMPLAINT: - POSSIBLE DISLOCATED SHOULDER DIAGNOSES: - Nicotine dependence, unspecified, uncomplicated - Recurrent dislocation, left shoulder - Type 2 diabetes mellitus without complications - 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 TYPE: Medical Surgical COMPLAINT: - PANCREATITIS, ALCOHOLIC DIAGNOSES: - Alcohol induced acute pancreatitis without necrosis or infection - Gastro-esophageal reflux disease without esophagitis - Alcoholic hepatitis without ascites - Nicotine dependence, unspecified, uncomplicated - Essential (primary) hypertension - Other custodial (current) drug therapy - group home (current) use of insulin - Type 1 diabetes mellitus without complications [email or web address]
[2021-04-18] MEDS ORDERED: PERCOCET 5-3251 EACH PO (04:42)
[2021-04-18] MEDS ORDERED: HYDROCODON-ACE1 EA10 PO (11:31)
== END 2021-04-18 05:33 | disposition home or self-care (01) ==
LOC: ED 01:17
DX: M24.412 Recurrent dislocation, left shoulder (principal); E11.9 Type 2 diabetes mellitus without complications; I10 Essential (primary) hypertension; F17.200 Nicotine dependence, unspecified, uncomplicated; Z79.899 Other long term (current) drug therapy; Z79.4 Long term (current) use of insulin
CPT/HCPCS: 23650; 73030; 99152; 99283-25; J1170; J2405; J2704

== ENCOUNTER 2021-04-18 07:53 | Emergency (ER) | payer OTHER ==
[~2021-04-18] VITALS: Ht 188 cm; Wt 90.7 kg
[~2021-04-18 07:53] MED LIST changes: +PERCOCET 5-3251 EACH PO
--- OUTSIDE RECORDS SUMMARY | 2021-04-18 07:54 | XMS ---
PreManage Notification: NIGEL CESPEDES Security Oral Pathologist Events No recent Security Events currently on file CRITERIA MET - [facility] - 2 Visits in 30 Days - 6 ED Visits in 6 Months - [facility] CARE PROVIDERS FIORDALIZA MONTOYA Physician Electromedical Equipment Technician 04/07/2021-Current PHONE: [phone] MILTON ROJAS Physician Electromedical Equipment Technician 10/20/2020-Current [place] PHONE: [phone] [facility] has no Care Guidelines for this patient. E.DLinda VISIT COUNT (12 MO.) [address] [place] [address] TOTAL 7 NOTE: Visits indicate total known visits. 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 - Essential (primary) hypertension - Type 2 diabetes mellitus without complications - Cough 12/14/2020 18:27 [facility] TYPE: Emergency COMPLAINT: - POSSIBLE DISLOCATED SHOULDER DIAGNOSES: - Nicotine dependence, unspecified, uncomplicated - Essential (primary) hypertension - penitentiary (current) use of insulin - Recurrent dislocation, left shoulder - Other superintendent terminal (current) drug therapy - Type 2 diabetes mellitus without complications 10/25/2020 21:30 [facility] [place] TYPE: Emergency COMPLAINT: - POSSIBLE DISLOCATED SHOULDER DIAGNOSES: - Nicotine dependence, unspecified, uncomplicated - Recurrent dislocation, left shoulder - Type 2 diabetes mellitus without complications - Other half-way (current) drug therapy - penitentiary (current) use of insulin 10/20/2020 01:15 [facility] OR TYPE: Emergency COMPLAINT: - POSSIBLE DISLOCATED SHOULDER DIAGNOSES: - Type 2 diabetes mellitus without complications - Nicotine dependence, unspecified, uncomplicated - Pain in left shoulder - Other superintendent terminal (current) drug therapy - penitentiary (current) use of insulin - Anterior dislocation of left humerus, initial encounter - Exposure to other specified factors, initial encounter INPATIENT VISIT TRACKING (12 MO.) 04/06/2021 15:47 [facility] OR TYPE: Medical Surgical COMPLAINT: - PANCREATITIS, ALCOHOLIC DIAGNOSES: - Alcohol induced acute pancreatitis without necrosis or infection - Gastro-esophageal reflux disease without esophagitis - Alcoholic hepatitis without ascites - Nicotine dependence, unspecified, uncomplicated - Essential (primary) hypertension - Other half-way (current) drug therapy - penitentiary (current) use of insulin - Type 1 diabetes mellitus without complications [email or web address]
[2021-04-18] MEDS ORDERED: HYDROCODON-ACE1 EA10 PO (11:31)
== END 2021-04-18 11:51 | disposition home or self-care (01) ==
LOC: ED 07:53
DX: M24.412 Recurrent dislocation, left shoulder (principal); E11.9 Type 2 diabetes mellitus without complications; I10 Essential (primary) hypertension; F17.200 Nicotine dependence, unspecified, uncomplicated; Z79.4 Long term (current) use of insulin; Z79.899 Other long term (current) drug therapy
CPT/HCPCS: 73030; 96374; 96375; 99283-25; J1170; J2405

== ENCOUNTER 2021-05-01 11:54 | Emergency (ER) | payer OTHER ==
[~2021-05-01] VITALS: Ht 188 cm; Wt 90.7 kg
[~2021-05-01 11:54] MED LIST changes: +HYDROCODON-ACE1 EA10 PO
--- OUTSIDE RECORDS SUMMARY | 2021-05-01 11:56 | XMS ---
PreManage Notification: NIGEL CESPEDES Security Tree Feller Events No recent Security Events currently on file CRITERIA MET - [facility] - 2 Visits in 30 Days - [facility] - 6 ED Visits in 6 Months CARE PROVIDERS FIORDALIZA MONTOYA Physician Clinical Account Executive 04/07/2021-Current PHONE: [phone] MILTON ROJAS Physician Clinical Account Executive 10/20/2020-Current [place] PHONE: [phone] [place] has no Care Guidelines for this patient. Care History Medical/Surgical 04/20/2021 [facility] - [facility] CALLED PATIENT- DID NOT ANSWER- LEFT A MESSAGE FOR A RETURN CALL - PATIENT NO SHOWED TO A FOLLOW UP APT WITH PCP FIORDALIZA MONTOYA ON 04/13/21. NO FURTHER FOLLOW UP APTS SCHEDULED. - CHW NOTIFIED DR BHAKTA OFFICE OF RECENT ED VISITS FOR SHOULDER DISLOCATION- THEY WILL REVIEW AND GET IN CONTACT WITH PATIENT FOR A FOLLOW UP APT. E.D. VISIT COUNT (12 MO.) 8 [facility] TOTAL 8 NOTE: Visits indicate total known visits. 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 - Essential (primary) hypertension - Recurrent dislocation, left shoulder - Nicotine dependence, unspecified, uncomplicated - nursing home (current) use of insulin - Type 2 diabetes mellitus without complications 04/18/2021 01:18 [facility] OR TYPE: Emergency COMPLAINT: - POSSIBLE DISLOCATED SHOULDER DIAGNOSES: - Essential (primary) hypertension - Nicotine dependence, unspecified, uncomplicated - Other group home (current) drug therapy - Recurrent dislocation, left shoulder - Type 2 diabetes mellitus without complications - nursing home (current) use of insulin 04/06/2021 13:18 [facility] OR TYPE: Emergency COMPLAINT: - DIABETES ISSUES 03/01/2021 12:03 [facility] OR TYPE: Emergency COMPLAINT: - FLU SYMPTOMS, NO TASTE DIAGNOSES: - Other disturbances of smell and taste - Nicotine dependence, unspecified, uncomplicated - Other disturbances of smell and taste - technician terminal and repeater (current) use of insulin - Essential (primary) hypertension - Type 2 diabetes mellitus without complications - Cough 12/14/2020 18:27 [facility] A[facility]ar[facility] [place] TYPE: Emergency COMPLAINT: - POSSIBLE DISLOCATED SHOULDER DIAGNOSES: - Nicotine dependence, unspecified, uncomplicated - Essential (primary) hypertension - nursing home (current) use of insulin - Recurrent dislocation, left shoulder - Other group home (current) drug therapy - Type 2 diabetes mellitus without complications 10/25/2020 21:30 [facility] OR TYPE: Emergency COMPLAINT: - POSSIBLE DISLOCATED SHOULDER DIAGNOSES: - Nicotine dependence, unspecified, uncomplicated - Recurrent dislocation, left shoulder - Type 2 diabetes mellitus without complications - Other group home (current) drug therapy - technician terminal and repeater (current) use of insulin 10/20/2020 01:15 [facility] OR TYPE: Emergency COMPLAINT: - POSSIBLE DISLOCATED SHOULDER DIAGNOSES: - Type 2 diabetes mellitus without complications - Nicotine dependence, unspecified, uncomplicated - Pain in left shoulder - 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
[2021-05-01] MEDS ORDERED: ONDANSETRON ODT4 MG PO (17:46)
== END 2021-05-01 17:58 | disposition home or self-care (01) ==
LOC: ED 11:54
DX: R10.13 Epigastric pain (principal); R11.2 Nausea with vomiting, unspecified; E86.0 Dehydration; E11.9 Type 2 diabetes mellitus without complications; I10 Essential (primary) hypertension; F17.200 Nicotine dependence, unspecified, uncomplicated; Z79.899 Other long term (current) drug therapy; Z79.4 Long term (current) use of insulin
CPT/HCPCS: 80053; 81001; 82800; 83690; 83735; 85025; 96374; 96375; 99284-25; G0480; J2270; J2405; J7030

== ENCOUNTER 2021-06-22 16:46 | Emergency (ER) | payer OTHER ==
[~2021-06-22] VITALS: Ht 188 cm; Wt 93.0 kg
[~2021-06-22 16:46] MED LIST changes: +ONDANSETRON ODT4 MG PO
--- OUTSIDE RECORDS SUMMARY | 2021-06-22 16:48 | XMS ---
PreManage Notification: NIGEL CESPEDES Security Textile Chemist Events 1 event(s) in the past 18 months Most recent security events: Elopement at [facility] 05/27/2021 20:59 - Other Details: PATIENT LWBS. CRITERIA MET - 6 ED Visits in 6 Months - [facility] - 2 Visits in 30 Days CARE PROVIDERS FIORDALIZA MONTOYA Physician Javascript Engineer 04/07/2021-Current PHONE: [phone] MILTON MONSIVAIS Physician Javascript Engineer 10/20/2020-Current PHONE: [phone] [place] has no Care Guidelines for this patient. Care History Medical/Surgical 04/20/2021 [facility] - [facility] CALLED PATIENT- DID NOT ANSWER- [...] UP APT. E.D. VISIT COUNT (12 MO.) [facility] TOTAL 10 NOTE: Visits indicate total known visits. ED/UCC VISIT TRACKING (12 MO.) 06/22/2021 16:47 [facility] [place] TYPE: Emergency COMPLAINT: - ABD PAIN 05/27/2021 20:59 [facility] [place] TYPE: Emergency COMPLAINT: - NAUSEA,CHEST PAIN 05/01/2021 11:54 [facility] COMPLAINT: - VOMITING DIAGNOSES: - Epigastric pain - Essential (primary) hypertension - Nicotine dependence, unspecified, uncomplicated - Dehydration - Other nursing home (current) drug therapy - Nausea with vomiting, unspecified - Type 2 diabetes mellitus without complications - nozzle worker (current) use of insulin 04/18/2021 07:53 [facility] COMPLAINT: - L SHOULDER INJURY DIAGNOSES: - Other adult live in caregiver (current) drug therapy - Essential (primary) hypertension - Recurrent dislocation, left shoulder - Nicotine dependence, unspecified, uncomplicated - assisted (current) use of insulin - Type 2 diabetes mellitus without complications 04/18/2021 01:18 [facility] [place] TYPE: Emergency COMPLAINT: - POSSIBLE DISLOCATED SHOULDER DIAGNOSES: - Essential (primary) hypertension - Nicotine dependence, unspecified, uncomplicated - Other nursing home (current) drug therapy - Recurrent dislocation, left shoulder - Type 2 diabetes mellitus without complications - assisted (current) use of insulin 04/06/2021 13:18 [facility] [place] TYPE: Emergency COMPLAINT: - DIABETES ISSUES 03/01/2021 12:03 [facility] OR TYPE: Emergency COMPLAINT: - FLU SYMPTOMS, NO TASTE DIAGNOSES: - Other disturbances of smell and taste - Nicotine dependence, unspecified, uncomplicated - Other disturbances of smell and taste - assisted (current) use of insulin - Essential (primary) hypertension - Type 2 diabetes mellitus without complications - Cough 12/14/2020 18:27 [facility] [place] TYPE: Emergency COMPLAINT: - POSSIBLE DISLOCATED SHOULDER DIAGNOSES: - Nicotine dependence, unspecified, uncomplicated - Essential (primary) hypertension - assisted (current) use of insulin - Recurrent dislocation, left shoulder - Other nursing home (current) drug therapy - Type 2 diabetes mellitus without complications 10/25/2020 21:30 [facility] OR TYPE: Emergency COMPLAINT: - POSSIBLE DISLOCATED SHOULDER DIAGNOSES: - Nicotine dependence, unspecified, uncomplicated - Recurrent dislocation, left shoulder - Type 2 diabetes mellitus without complications - Other nursing home (current) drug therapy - assisted (current) use of insulin 10/20/2020 01:15 [facility] [place] TYPE: Emergency COMPLAINT: - POSSIBLE DISLOCATED SHOULDER DIAGNOSES: - Type 2 diabetes mellitus without complications - Nicotine dependence, unspecified, uncomplicated - Pain in left shoulder - Other adult live in caregiver (current) drug therapy - 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
[2021-06-22] MEDS ORDERED: HYDROCODON-ACE1 EA10 PO (19:19)
[2021-06-22] MEDS ORDERED: ONDANSETRON ODT4 MG PO (19:20)
== END 2021-06-22 20:27 | disposition home or self-care (01) ==
LOC: ED 16:46
DX: K85.20 Alcohol induced acute pancreatitis without necrosis or infection (principal); E10.9 Type 1 diabetes mellitus without complications; I10 Essential (primary) hypertension; F17.200 Nicotine dependence, unspecified, uncomplicated; Z79.899 Other long term (current) drug therapy; Z79.4 Long term (current) use of insulin
CPT/HCPCS: 80053; 81001; 82803; 83690; 85025; 96374; 96375; 96376; 99284-25; J1170; J2405; J7030; U0003

== ENCOUNTER 2021-06-23 06:35 | Inpatient (IN) | payer OTHER ==
[~2021-06-23] VITALS: Ht 188 cm; Wt 84.4 kg
--- OUTSIDE RECORDS SUMMARY | 2021-06-23 06:38 | XMS ---
PreManage Notification: NIGEL CESPEDES Security Dish Up Person Events 1 event(s) in the past 18 months Most recent security events: Elopement at [facility] 05/27/2021 20:59 - Other Details: PATIENT LWBS. 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 Care History Medical/Surgical 04/20/[address] [facility] - CHW CALLED PATIENT- DID [...] UP APT. E.D. VISIT COUNT (12 MO.) 11 DARIEL Wilkinson TOTAL 11 NOTE: Visits indicate total known visits. ED/UCC VISIT TRACKING (12 MO.) 06/23/2021 06:35 [facility]gu[facility] [place] TYPE: Emergency COMPLAINT: - ABDOMINAL PAIN, VOMITING 06/22/2021 16:47 [facility] [place] TYPE: Emergency COMPLAINT: - ABD PAIN 05/27/2021 20:59 [facility] [place] TYPE: Emergency COMPLAINT: - NAUSEA,CHEST PAIN 05/01/2021 11:54 [facility] [place] TYPE: Emergency COMPLAINT: - VOMITING DIAGNOSES: - Epigastric pain - Essential (primary) hypertension - Nicotine dependence, unspecified, uncomplicated - Dehydration - Other nursing home (current) drug therapy - Nausea with vomiting, unspecified - Type 2 diabetes mellitus without complications - care home (current) use of insulin 04/18/2021 07:53 [facility] [place] TYPE: Emergency COMPLAINT: - L SHOULDER INJURY DIAGNOSES: - Other nursing home (current) drug therapy - Essential (primary) hypertension - Recurrent dislocation, left shoulder - Nicotine dependence, unspecified, uncomplicated - care home (current) use of insulin - Type 2 diabetes mellitus without complications 04/18/2021 01:18 [facility] [place] TYPE: Emergency COMPLAINT: - POSSIBLE DISLOCATED SHOULDER DIAGNOSES: - Essential (primary) hypertension - Nicotine dependence, unspecified, uncomplicated - Other intermediate manager (current) drug therapy - Recurrent dislocation, left shoulder - Type 2 diabetes mellitus without complications - intermediate manager (current) use of insulin 04/06/2021 13:18 [facility] [place] TYPE: Emergency COMPLAINT: - DIABETES ISSUES 03/01/2021 12:03 [facility] [place] TYPE: Emergency COMPLAINT: - FLU SYMPTOMS, NO TASTE DIAGNOSES: - Other disturbances of smell and taste - Nicotine dependence, unspecified, uncomplicated - Other disturbances of smell and taste - intermediate manager (current) use of insulin - Essential (primary) hypertension - Type 2 diabetes mellitus without complications - Cough 12/14/2020 18:27 [facility] [place] TYPE: Emergency COMPLAINT: - POSSIBLE DISLOCATED SHOULDER DIAGNOSES: - Nicotine dependence, unspecified, uncomplicated - Essential (primary) hypertension - care home (current) use of insulin - Recurrent dislocation, left shoulder - Other nursing home (current) drug therapy - Type 2 diabetes mellitus without complications 10/25/2020 21:[address] [facility] [place] TYPE: Emergency COMPLAINT: - POSSIBLE DISLOCATED SHOULDER DIAGNOSES: - Nicotine dependence, unspecified, uncomplicated - Recurrent dislocation, left shoulder - Type 2 diabetes mellitus without complications - Other intermediate manager (current) drug therapy - care home (current) use of insulin 10/20/2020 01:[address] [facility] [place] TYPE: Emergency COMPLAINT: - POSSIBLE DISLOCATED SHOULDER DIAGNOSES: - Type 2 diabetes mellitus without complications - Nicotine dependence, unspecified, uncomplicated - Pain in left shoulder - Other nursing home (current) drug therapy - intermediate manager (current) use of insulin - Anterior dislocation [...] uncomplicated - Essential (primary) hypertension - Other intermediate manager (current) drug therapy - care home (current) use of insulin - Type 1 diabetes mellitus without complications [id number]
[2021-06-25] MEDS ORDERED: HYDROCODON-ACE1 EA10 PO (11:40)
[2021-06-25] MEDS ORDERED: ONDANSETRON ODT4 MG PO (11:41)
== END 2021-06-25 12:45 | disposition home or self-care (01) | DRG 440 ==
LOC: ED 06:35 → MS 08:55
PROVIDERS: ADMIT Internal Medicine; ATTEND Internal Medicine
DX: K85.20 Alcohol induced acute pancreatitis without necrosis or infection (principal); Z20.822 Contact with and (suspected) exposure to COVID-19; I10 Essential (primary) hypertension; E13.9 Other specified diabetes mellitus without complications; G89.4 Chronic pain syndrome; F17.210 Nicotine dependence, cigarettes, uncomplicated; F10.10 Alcohol abuse, uncomplicated; F12.90 Cannabis use, unspecified, uncomplicated; Z79.899 Other long term (current) drug therapy; Z79.4 Long term (current) use of insulin
CPT/HCPCS: 80048; 80053; 83690; 85025; C9113; C9803; J1170; J1650; J1815; J2270; J2405; J3480; J7030; J7120; J7121; U0003

== ENCOUNTER 2021-07-30 10:13 | Inpatient (IN) | payer OTHER ==
[~2021-07-30] VITALS: Ht 188 cm; Wt 87.3 kg
--- OUTSIDE RECORDS SUMMARY | 2021-07-30 10:16 | XMS ---
PreManage Notification: NIGEL CESPEDES Security Referral Coordinator Events 1 event(s) in the past 18 months Most recent security events: Elopement at [facility] 05/27/2021 20:59 - Other Details: PATIENT LWBS. CRITERIA MET - 6 ED Visits in 6 Months CARE PROVIDERS FIORDALIZA MONTOYA Physician Wood Barker 04/07/2021-Current PHONE: [phone] MILTON MONSIVAIS Physician Wood Barker 10/20/2020-Current PHONE: [phone] Ambrose has no Care Guidelines for this patient. Care History Medical/Surgical 04/20/2021 [facility] - CHW CALLED PATIENT- DID NOT [...] UP APT. E.D. VISIT COUNT (12 MO.) [facility] TOTAL 12 NOTE: Visits indicate total known visits. ED/UCC VISIT TRACKING (12 MO.) 07/30/2021 10:13 [facility]EL [facility] [place] TYPE: Emergency COMPLAINT: - ABDOMINAL PAIN, VOMITING 06/23/2021 06:35 [facility] [place] TYPE: Emergency COMPLAINT: - ABDOMINAL PAIN, VOMITING 06/22/2021 16:[address] [facility] [address] [facility] [place] TYPE: Emergency COMPLAINT: - ABD PAIN DIAGNOSES: - MCFP (current) use of insulin - Type 1 diabetes mellitus without complications - Epigastric pain - Essential (primary) hypertension - Other halfway (current) drug therapy - Alcohol induced acute pancreatitis without necrosis or infection - Nicotine dependence, unspecified, uncomplicated 05/27/2021 20:59 [facility] Sarah Ann [place] TYPE: Emergency COMPLAINT: - NAUSEA,CHEST PAIN 05/01/2021 11:[address] [facility] [address] 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 - Essential (primary) hypertension - Recurrent dislocation, left shoulder - Nicotine dependence, unspecified, uncomplicated - roasterman (current) use of insulin - Type 2 diabetes mellitus without complications 04/18/2021 01:18 [facility] [place] TYPE: Emergency COMPLAINT: - POSSIBLE DISLOCATED SHOULDER DIAGNOSES: - Essential (primary) hypertension - Nicotine dependence, unspecified, uncomplicated - Other 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 renewal inspector (current) drug therapy - Recurrent dislocation, left shoulder - Type 2 diabetes mellitus without complications - roasterman (current) use of insulin 04/06/2021 13:18 [facility] [place] TYPE: Emergency COMPLAINT: - DIABETES ISSUES 03/01/2021 12:03 [facility] [place] TYPE: Emergency COMPLAINT: - FLU SYMPTOMS, NO TASTE DIAGNOSES: - Other disturbances of smell and taste - Nicotine dependence, unspecified, uncomplicated - Other disturbances of smell and taste - MCFP (current) use of insulin - Essential (primary) hypertension - Type 2 diabetes mellitus without complications - Cough 12/14/2020 18:27 [facility] [place] TYPE: Emergency COMPLAINT: - POSSIBLE DISLOCATED SHOULDER DIAGNOSES: - Nicotine dependence, unspecified, uncomplicated - Essential (primary) hypertension - MCFP (current) use of insulin - Recurrent dislocation, left shoulder - Other termite renewal inspector (current) drug therapy - Type 2 diabetes mellitus without complications 10/25/2020 21:30 [facility] [place] TYPE: Emergency COMPLAINT: - POSSIBLE DISLOCATED SHOULDER DIAGNOSES: - Nicotine dependence, unspecified, uncomplicated - Recurrent dislocation, left shoulder - Type 2 diabetes mellitus without complications - Other termite renewal inspector (current) drug therapy - roasterman (current) use of insulin 10/20/2020 01:15 [facility] [place] TYPE: Emergency COMPLAINT: - POSSIBLE DISLOCATED SHOULDER DIAGNOSES: - Type 2 diabetes mellitus without complications - Nicotine dependence, unspecified, uncomplicated - Pain in left shoulder - Other termite renewal inspector (current) drug therapy - roasterman (current) use of insulin - Anterior dislocation of left humerus, initial encounter - Exposure to other specified factors, initial encounter INPATIENT VISIT TRACKING (12 MO.) 06/23/2021 08:55 [facility] [place] TYPE: Medical Surgical COMPLAINT: - PANCREATITIS DIAGNOSES: - Essential (primary) hypertension - Cannabis use, unspecified, uncomplicated - Alcohol abuse, uncomplicated - Nicotine dependence, cigarettes, uncomplicated - Chronic pain syndrome - MCFP (current) use of insulin - Alcohol induced acute pancreatitis without necrosis or infection - Other specified diabetes mellitus without complications - Other halfway (current) drug therapy 04/06/2021 15:47 [facility] [place] TYPE: Medical Surgical COMPLAINT: - PANCREATITIS, ALCOHOLIC DIAGNOSES: - Alcohol induced acute pancreatitis without necrosis or infection - Gastro-esophageal reflux disease without esophagitis - Alcoholic hepatitis without ascites - Nicotine dependence, unspecified, uncomplicated - Essential (primary) hypertension - Other halfway (current) drug therapy - roasterman (current) use of insulin - Type 1 diabetes mellitus without complications [email or web address]
--- NOTE | 2021-07-30 13:20 | NUR ---
PT JUST ARRIVED ON FLOOR FROM ER. LOBES ARE CLEAR, PT AAOX4, ABD IS TENDER TO TOUCH AND BOWEL TONES ARE ACTIVE. NO OTHER CONCERNS WERE NOTED WITH INITIAL ASSESSMENT.
--- NOTE | 2021-07-30 15:29 | NUR ---
PT AFTER 1400 HAD SEVERE N/V. MD HUGHES ORDERED ATIVAN PRN AND THAT DID WELL FOR PT. PT ALSO SEEMED A BIT RESTLESS DUE TO HIS N/V WHICH ALSO DID RESOLVE HIS N/V.
--- NOTE | 2021-07-30 15:52 | NUR ---
DR HUGHES UPDATED ME THIS PATIENT WAS INTERESTED IN TREATMENT PEER TO PEER VISIT. SPOKE WITH PATIENT IN ROOM. PATIENT ANSWERED QUESTIONS WITH VERY SHORT, DAMIR RESPONSES. WOULD NOT MAKE EYE CONTACT. CUT ME OFF WHEN I WOULD TALK. MOVED AROUND IN BED RESTLESSLY. HE LIVES WITH GIRLFRIEND. NO DME. DRIVES. DOES NOT WORK. HAS PCP AT [facility]. STATES HE "MIGHT, WILL SEE" WANT TO TALK WITH SOMEONE ABOUT TREATMENT. WHEN ASKED IF HE HAS CONCERNS REGARDING AFFORDING MEDS/FOOD/UTILITES HE PULLED BLANKET UP ACROSS HEAD MUMBLING SOMETHING. WILL WAIT UNTIL PATIENT IS CLOSER TO DISCHARGE AND FEELS BETTER TO OFFER PEER VISIT AGAIN.
--- NOTE | 2021-07-30 16:04 | NUR ---
MED REC COMPLETE
--- NOTE | 2021-07-30 17:41 | NUR ---
SINCE ARRIVAL TO MS FLOOR. PT HAD QUIET A FEW DOSES OF IV MORPHINE AND IV ATIVAN. WHILE HIS N/V HAS SUBSIDED SO FAR, PAIN CONTROL IS STILL AN ISSUE. ABD IS SOFT AND TENDER TO TOUCH WITH ACTIVE TO HYPOACTIVE BOWEL TONES PRESENT. LOBES ARE CLEAR, NO PERIPH. EDEMA NOTED, HR AT TIMES IN THE LOW 100'S. O2 SATS WDL SO FAR. ONLY NEW CONCERN NOTED AT THIS TIME IS THAT PT SINCE ARRIVAL ONLY HAS HAD 100MLS OF URINE OUT. V/S WDL ALSO OTHERWISE.
--- NOTE | 2021-07-30 19:51 | NUR ---
pt cooperative with assessment. ciwa scale done. on room air, nicotine patch remoed. c/o abd tenderness was medicated at change of shift with 4mg morphine. ivf infusing w/o problems L hand. On room air, clear lungs, tender abd chris. voided small amounts of dark yellow/orange colored urine, sample sent to lab.
--- NOTE | 2021-07-30 21:36 | NUR ---
restless, c/o 07/10 abd cramping, medicated with dilaudid 4mg iv, c/o insomnia, medicated with melatonin 6mg po
--- NOTE | 2021-07-30 23:52 | NUR ---
C/O ABD PAIN 07/10, MEDICATED WITH MORPHINE 4MG IV
--- NOTE | 2021-07-31 00:22 | NUR ---
PT'S IV WAS BEEPING, FLUSHED IV AND IT IS NOW INFUSING FINE. CALL LIGHT IS CLOSE AND PT DENIES FURTHER NEEDS.
--- NOTE | 2021-07-31 03:03 | NUR ---
medicated with morphine 4mg IV, bp 161/114, recheked several times, pt got upset "Neri telling you I run high, i have high BP, the bottom number is nothing", calmer after we stopped, will notify MD and recheck BP later when pt calmer
--- NOTE | 2021-07-31 05:08 | NUR ---
C/O ABD PAIN 07/10, MEDICATED WITH MORPHINE 4MG IV, AWAKE, WATCHING TV, TOLERATING LARGE AMOUNTS OF ICE CHIPS. NO EMESIS. IVF INFUSING.
--- NOTE | 2021-07-31 05:12 | NUR ---
PT HAS BEEN AWAKE MOST OF THIS SHIFT. ON ROOM AIR. IVF INFUSING W/O PROBLEMS L HAND. HAS TOLERATD LARGE AMOUNTS OF ICE CHIPS, INSTRUCTED ON WHY NPO, SEMI RECEPTIVE TO INFORMATION. C/O ABD PAIN, MEDICATED WITH MORPHINE 4MG IV Q2H. NO EMSIS, PAIN RELIEF FAIR TO POOR PER PT. VOIDING QS.
--- NOTE | 2021-07-31 07:01 | NUR ---
IN ROOM TO HANG NEW IV BAG, VS TAKEN AND ENTERED. CALL LIGHT IS CLOSE AND PT IS REQUESTING PAIN MEDS, PRIMARY RN WILL RETURN WITH THEM.
--- NOTE | 2021-07-31 07:10 | NUR ---
Patient given morphine 4mg ivp for reports of 10/10 abd pain.
--- NOTE | 2021-07-31 09:12 | NUR ---
Admin morphine 4mg ivp for reports of 10/10 abdominal pain.
--- NOTE | 2021-07-31 11:20 | NUR ---
Ativan 2mg ivp and morphine 4mg ivp admin for 10/10 abdominal pain and ciwa score of 9.
--- NOTE | 2021-07-31 11:52 | NUR ---
PT ALERT, ORIENTED AND VERY RESTLESS IN BED. WHEN I INTRODUCED MYSELF-HE ASSUMED I WAS THERE TO BRING HIM BAD NEWS. OPENED THE DOOR FOR A GOOD, HONEST VISIT. PT ADMITTED HE IS HERE BECAUSE HE DRINKS TOO MUCH, AND KNOWS THAT IS WHAT IS CAUSING HIS TROUBLE WITH HIS PANCREATITUS. ADMITTED HE NEEDS TO CHANGE PEOPLE HE HANGS WITH. FEELS HIS DIABETES IS UNDER CONTROL. PT SEEMS TO BE OPEN TO CHANGE-KNOWS IT WILL BE HARD. BLAMED HIS DRINKING ON HIS FAMILY HERITAGE. DEBRIEFED AND GAVE OPTIONS FOR PT TO CONSIDER. PT STATED HE NEEDED TO CHANGE FOR HIS KIDS. REQUESTED PRAYER, GAVE BLESSING. WILL FOLLOW
--- NOTE | 2021-07-31 12:11 | NUR ---
In to see patient. Patient reports his pain is a 9/10 at this time. One time dose of fentanyl 25mcg ivp admin at this time. This RN asked patient if ativan and morphine were effective for his pain and anxiety, pt responded "when you put the heroin in there it worked", this RN responded to patient that I did not put any "heroin" anywhere. I educated patient regarding the medication he is getting here and also medications in which I have given him on my shift. Patient is anxious and frequently asking for pain medication.
--- NOTE | 2021-07-31 13:43 | NUR ---
Morphine 4mg IVP admin for reports of 9/10 abdominal pain. Patient reports his pain is slowly improving. Patient denies further needs. IV fluids changed at this time per provider order. Personal supplies and call light within reach.
--- NOTE | 2021-07-31 14:53 | NUR ---
Patient resting in bed, alert and oriented x4. Patient reports his pain has improved a bit with the pain medication he's getting. Patient has no current needs.
--- NOTE | 2021-07-31 17:40 | NUR ---
PT WITH SUSTAIN PULSE OF 131. DR HUGHES NOTIFIED. NO NEW ORDERS.
--- NOTE | 2021-07-31 19:19 | NUR ---
aDMIN MORHPINE 4MG IVP AND ATIVAN 2MG IVP FOR AGITATION/ABD PAIN.
--- NOTE | 2021-07-31 19:53 | NUR ---
awake, walking in room, voided, ivf infusing, fair abd pain relief.
--- NOTE | 2021-07-31 21:27 | NUR ---
anxious and restless, medicated with morphine 4mg IV c/o 10 abd pain. and with ativan 2mg IV see CIWA 9. flushed face, hyperverbal. ivf infusing. patent. c/o machine beeping everytime he moves his hand, light tremors in hands present. tolerating liquids well, voiding QS. will reassess in 2hrs
--- NOTE | 2021-07-31 23:43 | NUR ---
NEW IV STARTED ON R AC ULTRASOUND GUIDED AFTER THE SECOND TRY. C/O 10/10 ABD PAIN. MEDICATED WITH MORPHINE 4MG IV AND C/O INSOMNIA, MEDICATED WITH MELATONIN 6MG PO. CIWA 4 AT THIS TIME, CALMER. WAS COOP DURING IV INSERTION.
--- NOTE | 2021-08-01 00:50 | NUR ---
resting, on room air, no distress, ivf infusing w/o problems. fluids and call light at bedside
--- NOTE | 2021-08-01 02:37 | NUR ---
PT C/O 08/09 ABD PAIN, MEDICATED WITH MORPHINE 4MG IV, CALM, APPROPRIATE. CBG 95, JELLO AND CRANBERRY JUICE GIVEN. IVF INFUSING. SL PATENT. VOIDING QS, TOLERATING FLUIDS, NO EMESIS. TURNS AND REPOSITIONS SELF
--- NOTE | 2021-08-01 04:46 | NUR ---
Pt has slept this shift. On room air, CIWA scores 9 and 4 earlier on shift, received Ativan X1, has been medicated with Morphine 4X per abd pain, partial relif, has been medicated with Melatonin per insomnia, effective. New IV site started by ultrasound guide, patent, LR w 20mEq KCL IVf infusing w/o problems. Has tolerated clear liquids well. no emesis, voiding QS, encouraged to ambulate semireceptive
--- NOTE | 2021-08-01 05:59 | NUR ---
medicated with morphine 4mg iv, c/o 08/09 abd pain. pt slept 3straight hours this shift. more pleasant, cooperative, no emesis, voiding qs, tolerating liquids well. IVF infusing
--- NOTE | 2021-08-01 07:31 | NUR ---
this rn received report from svetlana bartholomew. pt awake and reports pain at 9/10. pt requesitng pain meds. this rn discussed with pt that its not time yet for pain meds.
--- NOTE | 2021-08-01 08:00 | NUR ---
this rn in pts room to give pt his morning meds and pain meds. pt apppears more pleasant when pain meds are offered. pt requesting to be left alone until next pain med due
--- NOTE | 2021-08-01 10:00 | NUR ---
THIS RN IN PTS ROOM TO TO GIVE PT HIS 4MG OF MORPHINE AND START PT ON HIS ORAL PAIN MEDS- THIS RN PROVIDED PT WITH 5MG OF OXY- WILL INCREASE DOSE IF NEEDED WHEN PT COMES OFF OF IV MORPHINE. PT AGREEABLE TO PLAN. STATES THAT HE WANTS TO GO HOME TODAY. 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
--- NOTE | 2021-08-01 11:00 | NUR ---
THIS RN IN PTS ROOM TO ENSURE PT ORDERED LUNCH. PT STATES HE DID AND THAT HIS PAIN IS 4/10 WHICH IS TOLERABLE.
--- NOTE | 2021-08-01 13:11 | NUR ---
this rn in pts room to check on pt. pt states that he has no nausea from lunch. pt does state his pain is 8/10. pt states he would be okay with another 5mg of oxy but does not want more morphine- this has been dced anyways
[2021-08-01] MEDS ORDERED: OXYCODONE HCL5 MG PO (13:39)
== END 2021-08-01 14:10 | disposition home or self-care (01) | DRG 440 ==
LOC: ED 10:13 → MS 12:17
PROVIDERS: ADMIT Internal Medicine; ATTEND Internal Medicine
DX: K85.20 Alcohol induced acute pancreatitis without necrosis or infection (principal); E11.9 Type 2 diabetes mellitus without complications; I10 Essential (primary) hypertension; Z20.822 Contact with and (suspected) exposure to COVID-19; F17.210 Nicotine dependence, cigarettes, uncomplicated; Z72.89 Other problems related to lifestyle; Z79.899 Other long term (current) drug therapy; Z79.4 Long term (current) use of insulin; Y90.6 Blood alcohol level of 120-199 mg/100 ml
CPT/HCPCS: 80048; 80053; 81001; 83690; 85007; 85025; 96374; 96375; 99284-25; C9113; C9803; G0480; J1170; J2060; J2270; J2405; J3010; J3480; J7030; J7120; U0003